=== PATIENT | male | born 1970 | race Caucasian/White ===

== ENCOUNTER 2017-01-26 18:31 | Emergency (ER) | payer MEDICAID, OTHER ==
[2017-01-26] MEDS ORDERED: IBUPROFEN 600 MG TABLET ONE (19:47)
[2017-01-26] MEDS ORDERED: ACETAMINOPHEN 325 MG TABLET ONE (19:47)
[2017-01-26] MEDS ORDERED: DEXAMETHASONE 4 MG TABLET ONE (19:47)
== END 2017-01-26 20:19 | disposition home or self-care (01) ==
LOC: ED 18:31
DX: B30.9 Viral conjunctivitis, unspecified (principal); J06.9 Acute upper respiratory infection, unspecified
CPT/HCPCS: 99283 ×2; A9270 ×3